=== PATIENT | female | born 1970 | race Hispanic/Latino ===

== ENCOUNTER 2024-06-26 14:49 | Inpatient (IN) | payer OTHER ==
[~2024-06-26] VITALS: Ht 167.6 cm; Wt 75.7 kg
[2024-06-26] MEDS: KETOROLAC TROMETHAMINE 30 MG/ML VIAL IV STA (15:27)
[2024-06-26] MEDS ORDERED: IOPAMIDOL 370 MG/ML 100 ML INFUS..BTL INJ ONE (15:30)
[2024-06-26 17:33] VITALS: PULSE 58; RESP 16; TEMP 97.9
[2024-06-26 18:38] VITALS: BP 125/66; PULSE 59; RESP 18; TEMP 97.7; O2SAT 100
[2024-06-26 20:00] VITALS: BP 126/60; PULSE 62; RESP 16; TEMP 97.7; O2SAT 98
[2024-06-26] MEDS: SODIUM CHLORIDE 0.9% 1000ML 1,000 ML IV SCH (20:45)
[2024-06-26 20:46] VITALS: PULSE 62; RESP 18; O2SAT 98
[2024-06-26 23:16] VITALS: BP 126/60; PULSE 62; RESP 18; TEMP 97.7; O2SAT 98
[2024-06-27] VITALS (13 sets, daily range): BP systolic 103–129; BP diastolic 53–71; PULSE 53–102; RESP 16–18; TEMP 97.5–97.9; O2SAT 98–100
[2024-06-27] MEDS: KETOROLAC TROMETHAMINE 30 MG/ML VIAL IM PRN (00:08)
[2024-06-27] MEDS: Morphine 4mg INJECTION 4 MG/ML INJ IV PRN (04:53)
[2024-06-27 06:10] LABS: BASOPHILS # (AUTO) 0.1 (0.0-0.1); BASOPHILS % 0.8 % (0.0-1.0); EOSINOPHILS # (AUTO) 0.3 (0.0-0.4); EOSINOPHILS % 5.2 % (0.0-6.0); HEMATOCRIT 37.7 % (34.2-44.1); HEMOGLOBIN 12.3 g/dL (12.0-16.0); LYMPHOCYTES # (AUTO) 2.3 (1.0-3.2); LYMPHOCYTES % 38.3 % (18.0-39.1); MEAN CORPUSCULAR HGB CONC 32.6 g/dL (31-35); MONOCYTES # (AUTO) 0.5 (0.2-0.8); MONOCYTES % 7.5 % (4.4-11.3); NEUTROPHILS # (AUTO) 2.9 (2.1-6.9); PLATELET COUNT 258 x10e3/uL (140-360); RED BLOOD COUNT 3.97 x10e6/uL (3.6-5.1); RED CELL DISTRIBUTION WIDTH 12.2 % (11.7-14.4); WHITE BLOOD COUNT 6.01 x10e3/uL (4.8-10.8)
[2024-06-27 06:44] LABS: ALBUMIN 3.6 g/dL (3.5-5.0); ALBUMIN/GLOBULIN RATIO 1.2 (0.8-2.0); ANION GAP 12.5 mmol/L (8-16); BILIRUBIN,TOTAL 0.9 mg/dL (0.2-1.2); CALCIUM 8.6 mg/dL (8.4-10.2); CREATININE, SERUM 0.6 mg/dL (0.57-1.11); POTASSIUM 3.5 mmol/L (3.5-5.1); TOTAL PROTEIN 6.5 g/dL (6.5-8.1)
[2024-06-27] MEDS: FAMOTIDINE 20 MG/2 ML VIAL IV SCH (10:10)
[2024-06-27] MEDS ORDERED: ROCURONIUM BROMIDE 1 ML IV ONE (11:11)
[2024-06-27] MEDS ORDERED: SEVOFLURANE INHAL SOLN 250 ML PEN BTL ONE (11:11)
[2024-06-27] MEDS ORDERED: SUCCINYLCHOLINE CHLORIDE 20 MG/ML 10ML VIAL ONE (11:11)
[2024-06-27] MEDS ORDERED: LIDOCAINE HCL 2% LOCAL INJ 5 ML SDV VIAL INJ ONE (11:11)
[2024-06-27] MEDS ORDERED: PROPOFOL IV EMULSION 10 MG/ML 20 ML VIAL ONE (11:11)
[2024-06-27] MEDS ORDERED: FENTANYL CITRATE/PF 100MCG/2 ML INJ ONE ×2 (11:11→14:49)
[2024-06-27] MEDS ORDERED: FAMOTIDINE 20 MG/2 ML VIAL IV ONE (12:08)
[2024-06-27] MEDS ORDERED: ONDANSETRON HCL INJ 2MG/ML 2ML 2 MG/ML VIAL ONE (12:17)
[2024-06-27] MEDS ORDERED: DEXAMETHASONE SOD PHOS INJ 4 MG/ML SDV ONE (12:17)
[2024-06-27] MEDS ORDERED: ACETAMINOPHEN 1000 MG/100 ML 100 ML IV ONE (12:17)
[2024-06-27] MEDS ORDERED: EPHEDRINE SULFATE INJ 50 MG/ML VIAL ONE (12:40)
[2024-06-27] MEDS ORDERED: SUGAMMADEX SODIUM 200 MG/2 ML VIAL IV ONE (14:39)
[2024-06-27] MEDS: HYDROMORPHONE 1MG/1ML INJ IV PRN (15:40)
[2024-06-27] MEDS: BUPIVACAINE LIPOSOME/PF 266 MG/20 ML IJ ONE (16:12)
[2024-06-27] MEDS: SODIUM CHLORIDE 0.9% 250ML IRRIG IR SCH (18:37)
[2024-06-27] MEDS: ONDANSETRON HCL INJ 2MG/ML 2ML 2 MG/ML VIAL IV PRN (20:43)
[2024-06-28] VITALS (11 sets, daily range): BP systolic 102–128; BP diastolic 50–63; PULSE 58–75; RESP 16–18; TEMP 97.5–98.1; O2SAT 94–100
[2024-06-28 05:49] LABS: BASOPHILS % 0.1 % (0.0-1.0); HEMATOCRIT 36.6 % (34.2-44.1); HEMOGLOBIN 12.1 g/dL (12.0-16.0); LYMPHOCYTES # (AUTO) 1.2 (1.0-3.2); LYMPHOCYTES % 10.7 % (18.0-39.1); MEAN CORPUSCULAR HEMOGLOBIN 30.7 pg (28-32); MEAN CORPUSCULAR HGB CONC 33.1 g/dL (31-35); MEAN CORPUSCULAR VOLUME 92.9 fL (81-99); MONOCYTES # (AUTO) 0.6 (0.2-0.8); MONOCYTES % 4.9 % (4.4-11.3); NEUTROPHILS # (AUTO) 9.3 (2.1-6.9); NEUTROPHILS % 83.6 % (38.7-80.0); PLATELET COUNT 266 x10e3/uL (140-360); RED BLOOD COUNT 3.94 x10e6/uL (3.6-5.1); WHITE BLOOD COUNT 11.17 x10e3/uL (4.8-10.8)
[2024-06-28 06:13] LABS: ALBUMIN 3.6 g/dL (3.5-5.0); ALBUMIN/GLOBULIN RATIO 1.1 (0.8-2.0); ANION GAP 15.7 mmol/L (8-16); BILIRUBIN,TOTAL 0.5 mg/dL (0.2-1.2); CALCIUM 8.8 mg/dL (8.4-10.2); CREATININE, SERUM 0.65 mg/dL (0.57-1.11); POTASSIUM 3.7 mmol/L (3.5-5.1); TOTAL PROTEIN 6.9 g/dL (6.5-8.1)
[2024-06-28] MEDS ORDERED: CHLORASEPTIC SPRAY 177 ML BTL MM PRN (08:00)
[2024-06-28] MEDS ORDERED: LIDOCAINE VISC 2% SOLN 15 ML UDC PO PRN (08:00)
[2024-06-28] MEDS: ACETAMINOPHEN 1000 MG/100 ML IV PRN (09:32)
[2024-06-28] MEDS: ENOXAPARIN SOD INJ 40 MG/0.4 ML SYR SC SCH (17:41)
[2024-06-29] VITALS (9 sets, daily range): BP systolic 104–143; BP diastolic 51–67; PULSE 55–71; RESP 17–22; TEMP 97.6–98.3; O2SAT 95–100
[2024-06-29 06:36] LABS: BASOPHILS % 0.5 % (0.0-1.0); EOSINOPHILS % 0.3 % (0.0-6.0); HEMATOCRIT 32.3 % (34.2-44.1); HEMOGLOBIN 10.4 g/dL (12.0-16.0); LYMPHOCYTES % 33.4 % (18.0-39.1); MEAN CORPUSCULAR HEMOGLOBIN 30.7 pg (28-32); MEAN CORPUSCULAR HGB CONC 32.2 g/dL (31-35); MEAN CORPUSCULAR VOLUME 95.3 fL (81-99); MONOCYTES # (AUTO) 0.6 (0.2-0.8); NEUTROPHILS # (AUTO) 5.2 (2.1-6.9); NEUTROPHILS % 58.6 % (38.7-80.0); PLATELET COUNT 258 x10e3/uL (140-360); RED BLOOD COUNT 3.39 x10e6/uL (3.6-5.1); RED CELL DISTRIBUTION WIDTH 12.5 % (11.7-14.4); WHITE BLOOD COUNT 8.87 x10e3/uL (4.8-10.8)
[2024-06-29 07:06] LABS: ALBUMIN 3.3 g/dL (3.5-5.0); ALBUMIN/GLOBULIN RATIO 1.2 (0.8-2.0); ANION GAP 12.6 mmol/L (8-16); BILIRUBIN,TOTAL 0.6 mg/dL (0.2-1.2); CALCIUM 8.3 mg/dL (8.4-10.2); CREATININE, SERUM 0.62 mg/dL (0.57-1.11); POTASSIUM 3.6 mmol/L (3.5-5.1); TOTAL PROTEIN 6.1 g/dL (6.5-8.1)
[2024-06-29] MEDS: BISACODYL 10 MG SUPP PR SCH (20:30)
[2024-06-30] VITALS (9 sets, daily range): BP systolic 116–129; BP diastolic 55–69; PULSE 58–74; RESP 17–18; TEMP 97.4–98.5; O2SAT 97–100
[2024-06-30 10:34] LABS: BASOPHILS # (AUTO) 0.1 (0.0-0.1); BASOPHILS % 0.8 % (0.0-1.0); EOSINOPHILS # (AUTO) 0.4 (0.0-0.4); EOSINOPHILS % 4.9 % (0.0-6.0); HEMATOCRIT 37.1 % (34.2-44.1); HEMOGLOBIN 12.5 g/dL (12.0-16.0); LYMPHOCYTES # (AUTO) 1.9 (1.0-3.2); LYMPHOCYTES % 24.6 % (18.0-39.1); MEAN CORPUSCULAR HEMOGLOBIN 30.9 pg (28-32); MEAN CORPUSCULAR HGB CONC 33.7 g/dL (31-35); MEAN CORPUSCULAR VOLUME 91.8 fL (81-99); MONOCYTES # (AUTO) 0.6 (0.2-0.8); MONOCYTES % 7.2 % (4.4-11.3); NEUTROPHILS # (AUTO) 4.9 (2.1-6.9); NEUTROPHILS % 62.2 % (38.7-80.0); PLATELET COUNT 283 x10e3/uL (140-360); RED BLOOD COUNT 4.04 x10e6/uL (3.6-5.1); RED CELL DISTRIBUTION WIDTH 11.9 % (11.7-14.4); WHITE BLOOD COUNT 7.88 x10e3/uL (4.8-10.8)
[2024-06-30 10:59] LABS: ANION GAP 18.3 mmol/L (8-16); CALCIUM 8.9 mg/dL (8.4-10.2); CREATININE, SERUM 0.59 mg/dL (0.57-1.11)
[2024-06-30 11:00] LABS: POTASSIUM 3.3 mmol/L (3.5-5.1)
[2024-06-30] MEDS: HYDROCODONE/APAP 7.5MG-325MG 1 EA TAB PO PRN (17:47)
[2024-07-01 04:00] VITALS: BP 106/59; PULSE 70; RESP 15; TEMP 97.8
[2024-07-01 07:46] VITALS: PULSE 71; RESP 18; O2SAT 97
[2024-07-01 08:39] VITALS: BP 115/63; PULSE 62; RESP 19; TEMP 98.4; O2SAT 98
[2024-07-01 09:00] VITALS: BP 115/63; PULSE 62; RESP 19; TEMP 98.4; O2SAT 98
[2024-07-01 13:53] VITALS: PULSE 74; RESP 18; O2SAT 96
[2024-07-01] MEDS ORDERED: ELIQUIS2.5 MG PO (15:26)
[2024-07-01 16:18] VITALS: BP 115/60; PULSE 78; RESP 19; TEMP 98.2; O2SAT 99
== END 2024-07-01 16:57 | disposition home or self-care (01) | DRG 331 ==
LOC: FSED 15:11 → ERHOLD 15:12 → UNDOADMOB 16:53 → ERHOLD 16:53 → OBSVTOIN 16:57 → MED/SURG2 18:32 → ERHOLD 18:32 → MED/SURG2 06-27 07:03 → UNDOADMOB 06-27 07:03 → ERHOLD 06-27 07:03 → MED/SURG2 06-28 07:03 → INTOOBSV 06-28 07:03 → OBSVTOIN 06-28 07:03 → UNDODISIN 07-01 16:41 → MED/SURG2 07-26 09:08 → ERHOLD 07-26 09:08
PROVIDERS: ADMIT Family Medicine Adult Medicine; ATTEND Family Medicine Adult Medicine
PROC: 0DQV0ZZ Repair Mesentery, Open Approach (ICD-10-PCS; 2024-06-27)
PROC: 0WJG4ZZ Inspection of Peritoneal Cavity, Percutaneous Endoscopic Approach (ICD-10-PCS; 2024-06-27)
PROC: 04L Lower Arteries, Occlusion (ICD-10-PCS; 2024-06-27)
PROC: 0DBH0ZZ Excision of Cecum, Open Approach (ICD-10-PCS; principal; 2024-06-27 12:05)
DX: K35.891 Other acute appendicitis without perforation, with gangrene (principal); K59.09 Other constipation; K76.0 Fatty (change of) liver, not elsewhere classified; Z90.710 Acquired absence of both cervix and uterus; Z86.718 Personal history of other venous thrombosis and embolism; E78.5 Hyperlipidemia, unspecified; I88.0 Nonspecific mesenteric lymphadenitis; K63.89 Other specified diseases of intestine; D64.89 Other specified anemias; D72.829 Elevated white blood cell count, unspecified; R00.1 Bradycardia, unspecified
CPT/HCPCS: 36415; 71045; 74177; 80048; 80053; 80076; 81003; 85025; 88304; 88307; 93005; 94799; 99283; C1766; G0378; J0330; J0666; J1100; J1171; J1308; J1650; J1885; J2003; J2270; J2405; J2543; J7030; Q9967